=== PATIENT | male | born 1965 | race African-American/Black ===

== ENCOUNTER 2017-04-18 09:31 | Emergency (ER) | payer OTHER ==
[2017-04-18 11:30] LABS: BASOPHIL 0.4 % (0-2); EOSINOPHIL 3.2 % (0-5); HCT 44.8 % (42.0-52.0); HGB 15.3 g/dl (13.2-18.0); LYMPHOCYTE 17.1 % (15-48); MCH 27.2 pg (25.0-31.0); MCHC 34.2 g/dL (32.0-36.0); MCV 79.7 fL (78.0-100.0); MONOCYTE 8.1 % (0-12); NEUTROPHIL 71.2 % (41-80); PLT 323 K/uL (150-400); RBC 5.62 M/uL (4.70-6.00); WBC 9.9 K/uL (4.0-10.5)
[2017-04-18 11:49] LABS: INR 1.18 (0.9-1.2); PROTHROMBIN TIME 14.6 SECONDS (11.7-14.0); PTT 27.5 SECONDS (23.2-31.4)
[2017-04-18 11:50] LABS: ALBUMIN 3.2 g/dL (3.5-5.0); BILIRUBIN - TOTAL 0.9 mg/dL (0.1-1.0); CREATININE 1.3 mg/dL (0.7-1.2); GLOBULIN (CALCULATION) 3.5 g/dL (2.2-4.2); MAGNESIUM 2.13 mg/dL (1.40-2.10); TOTAL PROTEIN 6.7 g/dL (6.4-8.3)
[2017-04-18 11:53] LABS: MYOGLOBIN 162 ng/mL (26-65); TROPONIN T < 0.010 ng/mL
[2017-04-18 12:25] LABS: CKMB 14.44 ng/mL (0.97-4.94); PRO-BNP 1299 pg/mL (0-125)
== END 2017-04-18 15:15 | disposition home or self-care (01) ==
LOC: FER 09:31
PROVIDERS: Emergency Medicine
DX: I11.0 Hypertensive heart disease with heart failure (principal); I50.1 Left ventricular failure, unspecified; I25.2 Old myocardial infarction; I25.10 Atherosclerotic heart disease of native coronary artery without angina pectoris; I44.7 Left bundle-branch block, unspecified; Z79.82 Long term (current) use of aspirin; Z79.899 Other long term (current) drug therapy; Z88.0 Allergy status to penicillin
CPT/HCPCS: 36415; 71010; 80053; 82550; 82553; 83735; 83874; 83880; 84484; 85025; 85610; 85730; 93005; J1940